=== PATIENT | female | born 1945 | race Caucasian/White ===

== ENCOUNTER 2023-03-11 13:50 | Outpatient (CLI) | payer MEDICARE | END 2023-03-11 23:59 | disposition critical access hospital (66) | LOC: EMS 13:50 | DX: E11.65 Type 2 diabetes mellitus with hyperglycemia (principal); R00.0 Tachycardia, unspecified | CPT/HCPCS: A0425; A0429 ==

== ENCOUNTER 2023-03-11 14:07 | Emergency (ER) | payer MEDICARE ==
[2023-03-11] MEDS ORDERED: diltiaZEM INJ 5 MG/ML VIAL IVP STA ×2 (14:21→14:51)
--- NOTE | 2023-03-11 14:21 | ED Physician Documentation ---
History of Present Illness - Stated complaint Stated Complaint: BLOOD SUGAR ISSUE - Chief complaint Chief Complaint: Cardiac - History obtained from History obtained from: Patient, EMS - Additonal information Additional information: This is an 78-year-old woman who is visiting from [place]. She has a history of DM 2, HTN, HLD, and is on Prozac. She takes lisinopril for blood pressure, no other blood pressure or heart medications and no pre-existing heart problems. She states that for the last 2 weeks or so she has had episodes of weakness where her legs are "like rubber." This culminated today in feeling so weak that she could not ambulate. She denies chest pain or trouble breathing. No palpitations although she is noted to be in rapid A-fib on the monitor. PD PAST MEDICAL HISTORY - Present Medications Home Medications: Ambulatory Orders Medication Instructions Recorded Confirmed Apixaban [Eliquis] 1 tab PO BID #60 tablet 03/11/23 Metoprolol Succinate [Toprol Xl] 50 mg PO DAILY #30 tablet 03/11/23 - Allergies Allergies/Adverse Reactions: Allergies Allergy/AdvReac Type Severity Reaction Status Date / Time morphine Allergy Emesis Verified 03/11/23 14:14 PD ED PE NORMAL - Vitals Vital signs reviewed: Yes (She is in A-fib on the monitor with heart rates ranging from about 1 50-1 8) - General General: Alert and oriented X 3, No acute distress - HEENT HEENT: PERRL, EOMI - Neck Neck: Supple, no meningeal sign, No bony TTP - Cardiac Cardiac: Other (Rapid and irregular without murmur) - Respiratory Respiratory: No respiratory distress, Clear bilaterally - Abdomen Abdomen: Non tender - Extremities Extremities: No edema, No calf tenderness / cord - Neuro Neuro: Alert and oriented X 3, Normal speech Results - Vitals Vitals: Vital Signs - 24 hr 03/11/23 03/11/23 03/11/23 14:14 14:41 14:52 Temperature 36.8 C Heart Rate 150 H 126 H 104 H Respiratory 16 18 17 Rate Blood Pressure 109/84 H 99/60 99/60 O2 Saturation 96 96 94 Oxygen O2 Source Room air - EKG (time done) 1419 EKG releavant findings:: EKG personally interpreted by author of this note. Relevant findings are: Rate: Rate (enter#) (155) Rhythm: Atrial fibrillation Hope: RAD QRS: Low voltage Ischemia: Non specific changes Compare to prior EKG: Old EKG unavailable - Labs Labs: Laboratory Tests 03/11/23 03/11/23 03/11/23 14:15 14:15 16:21 WBC 9.7 RBC 4.58 Hgb 13.3 Hct 41.3 MCV 90.2 MCH 29.0 MCHC 32.2 RDW 14.4 Plt Count 297 MPV 8.9 Neut # (Auto) 6.7 H Lymph # (Auto) 2.2 Dillon # (Auto) 0.6 Eos # (Auto) 0.0 Baso # (Auto) 0.0 Absolute Nucleated RBC 0.00 Nucleated RBC % 0.0 Sodium 136 Potassium 4.1 Chloride 103 Carbon Dioxide 21 Anion Gap 12.0 BUN 22 H Creatinine 1.2 Estimated GFR (MDRD) 43 L Glucose 347 H Calcium 10.6 H Total Bilirubin 0.7 AST 20 ALT 22 Alkaline Phosphatase 148 H Troponin I High Sens 54.1 H* 64.9 H* Total Protein 7.2 Albumin 4.0 Globulin 3.2 Albumin/Globulin Ratio 1.3 Lipase 23 TSH 1.40 - Rads (name of study) Single view chest x-ray demonstrates cardiomegaly and prominent interstitial markings Relevant Findings:: Final report received, EMP independent interpretation of test PD Medical Decision Making - ED course ED course: 78-year-old woman without heart history presents with generalized weakness and is found to be in A-fib with RVR. Although she had no "chest pain," she did complain of episodic sensation of numbness in her central chest that radiated to both shoulders recently. I do not know if that could be an anginal equivalent. Her initial heart rate was ranging from 150 up to 180. She was administered divided doses of diltiazem totaling 30 mg with rate control. Subsequently she did have some signs of heart failure on her x-ray and her blood sugar was 347 on CMP with a normal CBC. She was administered some IV insulin and her initial troponin came back at 54. After 2 hours it was repeated and went up by a little over 10 points. At that point she was administered aspirin and the decision to consult cardiology [place] was made. Subsequently I discussed her case by phone with Dr. Ware, watch and clock repair clerk in [place]. She recommended anticoagulation and rate control with a beta-santino, but did not feel strongly that the patient needed to be admitted. Patient was glad to be discharged. Departure - Departure Disposition: 01 Home, Self Care Clinical Impression: Atrial fibrillation Qualifiers: Atrial fibrillation type: unspecified Qualified Code(s): I48.91 - Unspecified atrial fibrillation Condition: Good Record reviewed to determine appropriate education?: Yes Instructions: Atrial Fibrillation Dc Prescriptions: Apixaban [Eliquis] 1 tab PO BID #60 tablet Metoprolol Succinate [Toprol Xl] 50 mg PO DAILY #30 tablet Comments: You were seen today for new onset rapid atrial fibrillation that I suspect has been going on for about 2 weeks given your history. Its not completely clear how long this has been going on. Besides rapid atrial fibrillation we found you to have modest hyperglycemia with a blood glucose of 347 which we treated with some insulin, and mild kidney dysfunction with a creatinine of 1.2 and a GFR of 43. Troponins were slightly elevated. Your rate was controlled here with diltiazem and subsequently I discussed her case by phone with a local watch and clock repair clerk who felt that you should be maintained on metoprolol and a blood thinner which I am prescribing both of. You should follow-up with your primary care physician on Monday for further evaluation and treatment which I would expect would include an echocardiogram and cardiology referral. Take it easy until then, return if worse. Continue your usual medications. Forms: PCP List
[2023-03-11 14:25] LABS: BASOPHILS % (AUTO) 0.4 %; EOSINOPHILS % (AUTO) 0.2 %; HCT - HEMATOCRIT 41.3 % (37.0-47.0); HGB - HEMOGLOBIN 13.3 g/dL (12.0-16.0); LYMPHOCYTES # (AUTO) 2.2 10^3/uL (1.5-3.5); LYMPHOCYTES % (AUTO) 23.1 %; MEAN CORPUSCULAR HGB CONC 32.2 g/dL (32.0-36.0); MEAN CORPUSCULAR VOLUME 90.2 fL (81.0-99.0); MEAN PLATELET VOLUME 8.9 fL (7.9-10.8); MONOCYTES # (AUTO) 0.6 10^3/uL (0.0-1.0); MONOCYTES % (AUTO) 6.3 %; NEUTROPHILS # (AUTO) 6.7 10^3/uL (1.5-6.6); NEUTROPHILS % (AUTO) 69.7 %; PLT - PLATELET COUNT 297 10^3/uL (130-450); RED BLOOD COUNT 4.58 10^6/uL (4.20-5.40); RED CELL DISTRIBUTION WIDTH 14.4 % (12.0-15.0); WHITE BLOOD COUNT 9.7 x10^3/uL (4.8-10.8)
[2023-03-11 14:37] LABS: ALBUMIN/GLOBULIN RATIO 1.3 (1.0-2.2); BILIRUBIN,TOTAL 0.7 mg/dL (0.2-1.0); CALCIUM 10.6 mg/dL (8.5-10.3); CREATININE 1.2 mg/dL (0.6-1.3); POTASSIUM 4.1 mmol/L (3.5-4.5); TOTAL PROTEIN 7.2 g/dL (6.4-8.9)
[2023-03-11 14:42] LABS: TROPONIN I HIGH SENSITIVITY 54.1 ng/L (2.3-14.8)
--- NOTE | 2023-03-11 14:43 | XRAY Report ---
PROCEDURE: Chest 1 View X-Ray INDICATIONS: Chest Pain TECHNIQUE: One view of the chest was acquired. COMPARISON: None. FINDINGS: Surgical changes and devices: None. Lungs and pleura: No pleural effusions or pneumothorax. Prominent interstitial markings. Mediastinum: Mediastinal contours appear normal. Heart size is enlarged. Bones and chest wall: No suspicious bony lesions. Overlying soft tissues appear unremarkable. IMPRESSION: Cardiomegaly and prominent interstitial markings, may represent pulmonary edema. Recommend correlatio n for volume overload. Reviewed by: Renard Mcarthur MD on 03/11/2023 2:42 PM PDT Approved by: Renard Mcarthur MD on 03/11/2023 2:42 PM PDT Station ID: [id number]
[2023-03-11] MEDS ORDERED: INSULIN REGULAR HUMAN 300 UNIT/3 ML VIAL IVP STA (14:50)
[2023-03-11 14:51] LABS: THYROID STIMULATING HORMONE 1.4 uIU/mL (0.34-5.60)
[2023-03-11] MEDS ORDERED: ASPIRIN CHEW 81 MG TABLET PO STA (17:07)
[2023-03-11] MEDS ORDERED: METOPROLOL TARTRATE 50 MG TABLET PO STA (17:37)
[2023-03-11] MEDS ORDERED: ENOXAPARIN 100 MG/ML SYRINGE SUBQ STA (17:37)
[2023-03-11 17:45] VITALS: BP 120/79; O2SAT 95
== END 2023-03-11 18:14 | disposition home or self-care (01) ==
LOC: ED 14:07
DX: I48.91 Unspecified atrial fibrillation (principal); I10 Essential (primary) hypertension; E11.9 Type 2 diabetes mellitus without complications; Z79.01 Long term (current) use of anticoagulants
CPT/HCPCS: 36415; 71045; 80053; 83690; 84443; 84484; 85025; 93005; 96372; 96374; 96376; 99284; A9270; J1650; J1815